=== PATIENT | male | born 1950 ===

== ENCOUNTER 2017-03-21 10:40 | Emergency (ER) | payer MEDICARE ==
[2017-03-21 10:40] VITALS: BMI 29.2
[2017-03-21] MEDS ORDERED: Sodium Chloride 0.9% 1,000 ML IV ONE (11:13)
[2017-03-21] MEDS: Albuterol-Ipratrop 3 mg / 0.5 (3 ml) UD IH SCH ×3 (11:20→11:50)
[2017-03-21] MEDS ORDERED: Albuterol-Ipratrop 3 mg / 0.5 (3 ml) UD ONE ×2 (11:28→11:35)
[2017-03-21] MEDS ORDERED: Sodium Chloride 0.9% 1,000 ML ONE (11:29)
[2017-03-21 11:46] LABS: BASO % 0.5 % (0.0-2.0); EOS # 0.4 K/uL (0.0-0.7); EOS % 4.2 % (0.0-4.0); LYMPH # 3.3 K/uL (1.0-4.3); LYMPH % 34.1 % (20.0-40.0); MEAN CELL VOLUME 88.7 fL (80.0-94.0); MEAN CORPUSCULAR HGB CONC 32.7 g/dL (33.0-37.0); MEAN PLATELET VOLUME 7.5 fL (7.2-11.7); MONO # 0.7 K/uL (0.0-0.8); WHITE BLOOD COUNT 9.6 K/uL (4.8-10.8)
--- NOTE | 2017-03-21 11:53 | C.PDOC ---
History Of Present Illness 66 y/o male, history of COPD, presents to ED with c/o cough productive of white sputum for 1 week. Patient was seen by PMD for similar and was given prednisone and penicillin. Patient reports he felt short of breath while walking today, while he was accompanying his to her doctor's appointment. Denies cough, fever, chills, nausea, vomiting, or other associated symptoms. Time Seen by Provider: 03/21/17 11:08 Chief Complaint (Nursing): Dizziness/Lightheaded History Per: Patient History/Exam Limitations: no limitations Onset/Duration Of Symptoms: Days Current Symptoms Are (Timing): Still Present Current Respiratory Medications: Prednisone Associated Symptoms: Productive Cough. denies: Fever, Chills, Dizziness, Anxiety Reports Recently: Treated By A Physician Recent travel outside of the [place]: No Past Medical History Reviewed: Historical Data, Nursing Documentation, Vital Signs Vital Signs: Last Vital Signs Temp 97.6 F 03/21/17 13:28 Pulse 78 03/21/17 13:28 Resp 17 03/21/17 13:28 BP 148/71 03/21/17 13:28 Pulse Ox 95 03/21/17 13:28 - Medical History PMH: Anxiety, Arthritis, Asthma, Benign Prostatic Hyperplasia, COPD, Depression , HTN, Hypercholesterolemia Denies: Chronic Kidney Disease - [facility] Procedures CATARAC PHACOEMULS/ASPIR (03/10/15) CORONAR ARTERIOGR-2 CATH (08/30/14) INSERT LENS AT CATAR EXT (03/10/15) LEFT HEART CARDIAC CATH (08/30/14) LT HEART ANGIOCARDIOGRAM (08/30/14) Family History: States: Unknown Family Hx - Social History Hx Tobacco Use: No Hx Alcohol Use: No Hx Substance Use: No - Immunization History Hx Tetanus Toxoid Vaccination: Yes Hx Influenza Vaccination: Yes Hx Pneumococcal Vaccination: Yes Review Of Systems Except As Marked, All Systems Reviewed And Found Negative. Constitutional: Negative for: Fever, Chills Cardiovascular: Negative for: Chest Pain, Palpitations Respiratory: Positive for: Cough, Shortness of Breath, Sputum Gastrointestinal: Negative for: Nausea, Vomiting, Abdominal Pain Skin: Negative for: Rash Neurological: Negative for: Headache, Dizziness Physical Exam - Physical Exam Appears: Non-toxic, No Acute Distress Skin: Normal Color, Warm, Dry, No Rash Head: Atraumatic, Normacephalic Eye(s): bilateral: Normal Inspection, PERRL, EOMI Oral Mucosa: Moist Throat: Normal, No Erythema, No Exudate, No Drooling Neck: Supple Chest: Symmetrical Cardiovascular: Rhythm Regular Respiratory: No Accessory Muscle Use, No Rales, Rhonchi (scattered), Wheezing ( expiratory ) Gastrointestinal/Abdominal: Soft, No Tenderness, No Guarding, No Rebound Back: Normal Inspection Extremity: Normal ROM, Capillary Refill (< 2 sec.) Neurological/Psych: Oriented x3, Normal Speech, Normal Cognition ED Course And Treatment - Laboratory Results Result Diagrams: 03/21/17 11:42 03/21/17 11:42 ECG: Interpreted By Me ECG Rhythm: Sinus Rhythm ECG Interpretation: Normal Rate From EC (BPM) O2 Sat by Pulse Oximetry: 96 (RA) Pulse Ox Interpretation: Normal Medical Decision Making Medical Decision Making: Impression: SOB Plan: * EKG * Labs * CXR Progress: EKG is NS at 74 bpm with no ischemic changes Labs unremarkable, negative troponin, patient had no chest pain, c.o tightness and SOB CXR shows COPD, no infiltrates or pleural effusion Upon reevaluation patient has no fever and reports feeling better. Lung sounds have improved. Patient stable for discharge. Instruct to follow up with PCP Disposition Counseled Patient/Family Regarding: Diagnosis, Need For Followup - Disposition Referrals: Pavithra Mccarthy MD [Staff Provider] - Disposition: HOME/ ROUTINE Disposition Time: 13:20 Condition: STABLE Additional Instructions: Follow up with your primary medical doctor or clinic in 2-5 days for further evaluation. Take medications as prescribed. Return to the emergency department at any time if symptoms persist or worsen. Prescriptions: Brompheniramine/Pseudoephed/Dm [Bromfed Dm Cough 118 ml] 5 ml PO Q8 PRN #4 oz PRN Reason: Cough And Congestion Instructions: COPD (Chronic Obstructive Pulmonary Disease) (DC) - POA Present On Arrival: None - Clinical Impression Clinical Impression: COPD exacerbation - PA / [employer] TR[employer]ER / Resident Statement MD/DO has reviewed & agrees with the documentation as recorded. - Scribe Statement The provider has reviewed the documentation as recorded by the Scribe Jorge Suero All medical record entries made by the Scribe were at my direction and personally dictated by me. I have reviewed the chart and agree that the record accurately reflects my personal performance of the history, physical exam, medical decision making, and the department course for this patient. I have also personally directed, reviewed, and agree with the discharge instructions and disposition.
[2017-03-21 12:53] LABS: CHLORIDE 99 mmol/L (98-107)
[2017-03-21 12:54] LABS: POTASSIUM 4.8 mmol/L (3.6-5.2); SODIUM 135 mmol/L (132-148)
[2017-03-21 12:56] LABS: ALB/GLOB RATIO 1.5 (1.0-2.1); ALKALINE PHOSPHATASE 78 U/L (38-126); AST/SGOT 20 U/L (17-59); BILIRUBIN,TOTAL 0.6 mg/dL (0.2-1.3); CARBON DIOXIDE 24 mmol/L (22-30); GFR AFRICAN-AMERICAN > 60; TOTAL PROTEIN 8.2 g/dL (6.3-8.3)
[2017-03-21 12:57] LABS: ALT/SGPT 19 U/L (21-72); BLOOD UREA NITROGEN 16 mg/dL (9-20); CALCIUM 8.8 mg/dl (8.6-10.4); GLUCOSE,RANDOM 83 mg/dL (75-110)
[2017-03-21 13:30] VITALS: BP 148/71; PULSE 78; RESP 17; TEMP 97.6
--- NOTE | 2017-03-21 13:47 | RAD ---
HISTORY: SOB COMPARISON: Comparison is made to the previous study dated 04/15/2016 TECHNIQUE: Chest PA and lateral FINDINGS: LUNGS: No significant interval change in the lungs noted since the previous exam. PLEURA: No significant pleural effusion identified. No pneumothorax apparent. CARDIOVASCULAR: Normal. OSSEOUS STRUCTURES: No significant abnormalities. VISUALIZED UPPER ABDOMEN: Normal. OTHER FINDINGS: None. IMPRESSION: No significant interval change since the previous study.
[2017-03-21 13:57] LABS: RBC URINE < 1 /hpf (0-3); URINE BILIRUBIN NEGATIVE (NEGATIVE); URINE BLOOD NEGATIVE (NEGATIVE); URINE COLOR Yellow (YELLOW); URINE GLUCOSE (UA) NORMAL (Normal); URINE KETONE NEGATIVE (NEGATIVE); URINE LEUKOCYTE ESTERASE 2+ Leu/uL (Negative); URINE PROTEIN NEGATIVE (NEGATIVE); URINE UROBILINOGEN NORMAL mg/dL (0.2-1.0)
[2017-03-21 14:02] LABS: WBC URINE 5 /hpf (0-5)
[2017-03-21 14:23] VITALS: O2SAT 96
--- NOTE | 2017-03-22 23:20 | CARD ---
APPROVED REPORT EKG Measurement Heart [id number] <Conclusion> Normal sinus rhythm Normal ECG
== END 2017-03-21 13:46 | disposition home or self-care (01) ==
LOC: C.ER 10:40
DX: J44.1 Chronic obstructive pulmonary disease with (acute) exacerbation (principal)
CPT/HCPCS: 71020; 80053; 81001; 82948; 83880; 84484; 85025; 93005; 94640; 94770; 96374; 99285; J2930; J7040

== ENCOUNTER 2017-10-02 06:48 | Day surgery (SDC) | payer MEDICARE ==
[2017-10-02 07:10] VITALS: BMI 28.8
[2017-10-02] MEDS ORDERED: Propofol 10 mg/ml Inj (20 ML) ONE (08:05)
--- NOTE | 2017-10-02 08:09 | CP.SDSHP ---
Same Day Surgery H & P - History Proposed Procedure: COLONSCOPY Pre-Op Diagnosis: SCREENING - Previous Medical/Surgical History Cardiac: Hypertension Pulmonary: Asthma Endocrine/Metabolic: Diabetes, Other Neuro: Seizure Disorder Misc: Other Pain: 2.Mild Pain - Allergies Allergies: Allergies No Known Allergies Allergy (Verified 04/15/16 12:40) - Physical Exam General Appearance: N Vital Signs: Vital Signs 10/02/17 10/02/17 07:10 08:00 Temperature 97.5 F L 97.5 F L Pulse Rate 69 69 Respiratory 19 19 Rate Blood Pressure 161/81 H 161/81 H O2 Sat by Pulse 97 97 Oximetry Mental Status: Alert & Oriented x3 Neuro: WNL Heart: Other Lungs: Other GI: WNL - {Optional Preform as Required} Breast: WNL Abdomen: Other Rectal: WNL Integument: WNL : WNL ENT: WNL Eyes: Best Corrected Vision Right - Impression Pt. Evaluated Today:Candidate for Anesthesia & Procedure: Yes - Date & Time Time: 08:09 Short Stay Discharge - Short Stay Discharge Admitting Diagnosis/Reason for Visit: ENCOUNTER FOR SCREENING FOR MALIGNANT NEOPLASM OF Disposition: HOME/ ROUTINE
[2017-10-02] MEDS ORDERED: Phenylephrine 10 mg/ml Inj ONE (08:12)
[2017-10-02] MEDS ORDERED: Midazolam 2 MG/2 ML VIAL ONE (08:26)
[2017-10-02 08:44] VITALS: TEMP 97.8
[2017-10-02] MEDS ORDERED: Belladonna-Phenobarbital PO ONE (08:50)
[2017-10-02 09:24] VITALS: RESP 14; O2SAT 98
[2017-10-02 09:26] VITALS: BP 150/77; PULSE 66
== END 2017-10-02 10:45 | disposition home or self-care (01) ==
LOC: C.ENDO 06:48
PROVIDERS: ATTEND Specialist
DX: K57.90 Diverticulosis of intestine, part unspecified, without perforation or abscess without bleeding (principal); K64.4 Residual hemorrhoidal skin tags; K64.8 Other hemorrhoids
CPT/HCPCS: 45380; 82948; 88305; J2250; J2370; J2704

== ENCOUNTER 2017-10-04 07:20 | Day surgery (SDC) | payer MEDICARE ==
[2017-10-04 08:04] VITALS: BMI 26.6
[2017-10-04] MEDS ORDERED: Propofol 10 mg/ml Inj (20 ML) ONE (09:21)
--- NOTE | 2017-10-04 09:26 | CP.SDSHP ---
Same Day Surgery H & P - History Proposed Procedure: EGD Pre-Op Diagnosis: SEE NOTES - Previous Medical/Surgical History Cardiac: Hypertension, ASHD/CAD Pulmonary: Asthma Endocrine/Metabolic: Diabetes Neuro: Other Misc: Other Pain: 4.Moderate Pain - Allergies Allergies: Allergies No Known Allergies Allergy (Verified 04/15/16 12:40) - Physical Exam General Appearance: N Vital Signs: Vital Signs 10/04/17 07:51 Temperature 98.0 F Pulse Rate 80 Respiratory 97 H Rate Blood Pressure 165/88 H Mental Status: Alert & Oriented x3 Neuro: WNL Heart: Other Lungs: Other GI: WNL - {Optional Preform as Required} Breast: WNL Abdomen: Other Rectal: Other Integument: WNL : Other Ortho: WNL ENT: WNL - Impression Pt. Evaluated Today:Candidate for Anesthesia & Procedure: Yes - Date & Time Time: 09:25 Short Stay Discharge - Short Stay Discharge Admitting Diagnosis/Reason for Visit: DYSPEPSIA Disposition: HOME/ ROUTINE
[2017-10-04] MEDS ORDERED: Belladonna-Phenobarbital PO STA (09:27)
[2017-10-04] MEDS ORDERED: Lactated Ringer's 1,000 ML IV ONE (09:28)
[2017-10-04] MEDS ORDERED: Pantoprazole 40 mg EC Tab PO STA (09:42)
[2017-10-04 11:45] VITALS: TEMP 98.1
[2017-10-04 11:54] VITALS: BP 140/66; PULSE 63; RESP 18; O2SAT 98
== END 2017-10-04 11:05 | disposition home or self-care (01) ==
LOC: C.ENDO 07:20
PROVIDERS: ATTEND Specialist
DX: K21.0 Gastro-esophageal reflux disease with esophagitis (principal); K29.60 Other gastritis without bleeding; K44.9 Diaphragmatic hernia without obstruction or gangrene
CPT/HCPCS: 43239; 82948; 88305; 88342; J2704; J7120

== ENCOUNTER 2017-10-19 09:32 | Emergency (ER) | payer MEDICARE ==
[2017-10-19 09:32] VITALS: BMI 26.6
[2017-10-19 09:42] VITALS: TEMP 97.3
[2017-10-19] MEDS ORDERED: Albuterol-Ipratrop 3 mg / 0.5 (3 ml) UD IH STA (09:47)
[2017-10-19] MEDS ORDERED: Albuterol-Ipratrop 3 mg / 0.5 (3 ml) UD ONE (09:57)
[2017-10-19 09:58] LABS: BASO % 0.4 % (0.0-2.0); EOS # 0.6 K/uL (0.0-0.7); EOS % 6.2 % (0.0-4.0); HEMOGLOBIN 13.7 g/dL (12.0-18.0); LYMPH # 3.9 K/uL (1.0-4.3); LYMPH % 37.9 % (20.0-40.0); MEAN CELL VOLUME 89.2 fL (80.0-94.0); MEAN CORPUSCULAR HEMOGLOBIN 30.3 pg (27.0-31.0); MEAN CORPUSCULAR HGB CONC 33.9 g/dL (33.0-37.0); MEAN PLATELET VOLUME 8.2 fL (7.2-11.7); MONO # 0.8 K/uL (0.0-0.8); MONO % 7.7 % (0.0-10.0); NEUT % 47.8 % (50.0-75.0); RBC 4.51 Mil/uL (4.40-5.90); RED CELL DISTRIBUTION WIDTH 13.1 % (11.5-14.5); WHITE BLOOD COUNT 10.4 K/uL (4.8-10.8)
[2017-10-19 10:04] LABS: INR 0.9; PROTHROMBIN TIME 10.5 SECONDS (9.7-12.2)
[2017-10-19 10:10] LABS: ALBUMIN 4.4 g/dL (3.5-5.0); ALT/SGPT 18 U/L (21-72); AST/SGOT 17 U/L (17-59); BLOOD UREA NITROGEN 20 mg/dL (9-20); CALCIUM 8.8 mg/dl (8.6-10.4); GFR AFRICAN-AMERICAN > 60; GFR NON-AFRICAN AMERICAN > 60
[2017-10-19 10:12] LABS: ALB/GLOB RATIO 1.2 (1.0-2.1)
--- NOTE | 2017-10-19 10:12 | C.PDOC ---
History Of Present Illness 67 year old male, with past medical history of COPD, presents to ED for evaluation of increased shortness of breath, and chest pain for the past 3 days. Patient states, "my entire chest and back hurts from all the coughing". Patient reports having non-productive cough, and feeling short of breath with exertion. Patient also admits to decreased appetite, only having one meal yesterday. Notes that he felt weak and felt as if he will pass out yesterday after climbing up 5 steps of stairs. Notes using nebulizer machine at home with no significant relief. Denies fever, chills, leg/ankle swelling or pain, headache, dizziness, or any other associated symptoms at this time. Time Seen by Provider: 10/19/17 09:43 Chief Complaint (Nursing): Chest Pain History Per: Patient History/Exam Limitations: no limitations Onset/Duration Of Symptoms: Days Current Symptoms Are (Timing): Still Present Associated Symptoms: Dyspnea. denies: Nausea, Diaphoresis, Syncope Modifying Factors: None Exacerbating Factors: Exertion Alleviating Factors: None Recent travel outside of the [place]: No Additional History Per: Patient Past Medical History Reviewed: Historical Data, Nursing Documentation, Vital Signs Vital Signs: Last Vital Signs Temp 97.3 F L 10/19/17 09:34 Pulse 87 10/19/17 10:16 Resp 20 10/19/17 10:16 BP 122/64 10/19/17 10:16 Pulse Ox 95 10/19/17 10:26 - Medical History PMH: Anxiety, Arthritis, Asthma, Benign Prostatic Hyperplasia, COPD, Depression , HTN (DUE TO PREDNISONE), Hypercholesterolemia Surgical History: No Surg Hx - [facility] Procedures CATARAC PHACOEMULS/ASPIR (03/10/15) CORONAR ARTERIOGR-2 CATH (08/30/14) INSERT LENS AT CATAR EXT (03/10/15) LEFT HEART CARDIAC CATH (08/30/14) LT HEART ANGIOCARDIOGRAM (08/30/14) Family History: States: Unknown Family Hx - Social History Hx Tobacco Use: No Hx Alcohol Use: No Hx Substance Use: No - Immunization History Hx Tetanus Toxoid Vaccination: Yes Hx Influenza Vaccination: Yes Hx Pneumococcal Vaccination: Yes Review Of Systems Except As Marked, All Systems Reviewed And Found Negative. Constitutional: Positive for: Weakness. Negative for: Fever, Chills Cardiovascular: Positive for: Chest Pain. Negative for: Palpitations, Edema, Light Headedness Respiratory: Positive for: Cough, Shortness of Breath, SOB with Excertion. Negative for: Sputum Gastrointestinal: Negative for: Nausea, Vomiting, Abdominal Pain Musculoskeletal: Positive for: Back Pain. Negative for: Neck Pain Neurological: Negative for: Headache, Dizziness Physical Exam - Physical Exam Appears: Non-toxic, No Acute Distress (no respiratory distress) Skin: Normal Color, Warm, Dry Head: Atraumatic, Normacephalic Eye(s): bilateral: Normal Inspection, EOMI Ear(s): Bilateral: Normal (no erythema) Nose: Normal Oral Mucosa: Moist Neck: Normal ROM, Supple Chest: Symmetrical, No Deformity, No Tenderness Cardiovascular: Rhythm Regular, No Murmur Respiratory: Normal Breath Sounds (clear), No Accessory Muscle Use, No Rales, No Rhonchi, No Wheezing Gastrointestinal/Abdominal: Soft, No Tenderness Back: No Vertebral Tenderness, No Paraspinal Tenderness Extremity: Normal ROM, No Pedal Edema, No Deformity Pulses: Left Radial: Normal Neurological/Psych: Oriented x3, Normal Speech Gait: Steady ED Course And Treatment - Laboratory Results Result Diagrams: 10/19/17 09:53 10/19/17 09:53 Lab Interpretation: No Acute Changes ECG: Interpreted By Me, Viewed By Me ECG Rhythm: Sinus Rhythm ECG Interpretation: No Acute Changes Rate From EC (bpm) O2 Sat by Pulse Oximetry: 95 (RA) Pulse Ox Interpretation: Normal - Radiology CXR: Interpreted by Me, Viewed By Me CXR Interpretation: Yes: No Acute Disease. No: Infiltrates Medical Decision Making Medical Decision Making: Impression: SOB, weakness Plan: * Labs * CXR * Duoneb * Solu-medrol Progress: Labs show mild dehydration.Will order IV NS. Otherwise no leukocytosis, neg trop or other abnormality CXR shows no infiltrates, effusion or pneumothorax, EKG is NS without ST elevation or ischemic changes 10:55 On re-evaluation patient reports feeling better, his lungs are clear and his vital signs are stable. Discussed results with patient and he feels comfortable going home and will be discharged Disposition Counseled Patient/Family Regarding: Diagnosis, Need For Followup, Rx Given - Disposition Referrals: Pavithra Mccarthy MD [Staff Provider] - Disposition: HOME/ ROUTINE Disposition Time: 11:00 Condition: IMPROVED Additional Instructions: Your prescription for Prednisone was sent to [facility], please take it daily as directed Use your nebulizer and inhaler as needed It is important that you follow up with your physician Dr Mccarthy in timely manner Return to the emergency department at any time if symptoms persist or worsen. 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 - Scribe Statement The provider has reviewed the documentation as recorded by the Geneibe Ofelia Crum All medical record entries made by the Geneibjoselyn were at my direction and personally dictated by me. I have reviewed the chart and agree that the record accurately reflects my personal performance of the history, physical exam, medical decision making, and the department course for this patient. I have also personally directed, reviewed, and agree with the discharge instructions and disposition.
[2017-10-19] MEDS ORDERED: Sodium Chloride 0.9% 1,000 ML IV ONE (10:13)
[2017-10-19 10:22] LABS: B-TYPE NATRIURETIC PEPTIDE 30.5 pg/mL (0-900)
[2017-10-19 10:26] LABS: SQUAMOUS EPITHIAL 1 /hpf (0-5); URINE BACTERIA RARE (<OCC); URINE BILIRUBIN NEGATIVE (NEGATIVE); URINE BLOOD NEGATIVE (NEGATIVE); URINE CLARITY Clear (Clear); URINE COLOR Yellow (YELLOW); URINE GLUCOSE (UA) NORMAL (Normal); URINE LEUKOCYTE ESTERASE 2+ Leu/uL (Negative); URINE NITRATE NEGATIVE (NEGATIVE); URINE PROTEIN NEGATIVE (NEGATIVE)
[2017-10-19 11:19] VITALS: BP 125/60; PULSE 70; RESP 16
[2017-10-19 12:08] VITALS: O2SAT 95
--- NOTE | 2017-10-19 12:27 | RAD ---
HISTORY: COMPARISON: 03/21/2017. TECHNIQUE: Chest PA and lateral FINDINGS: LINES AND TUBES: None. LUNG AND PLEURA: The lungs are well inflated and clear. HEART AND MEDIASTINUM: The heart is not enlarged. The hilar and mediastinal contours are within normal limits. SKELETAL STRUCTURES: The bony structures are within normal limits for the patient's age. VISUALIZED UPPER ABDOMEN: Normal. OTHER FINDINGS: None. IMPRESSION: No active pulmonary disease.
--- NOTE | 2017-10-22 10:11 | CARD ---
APPROVED REPORT EKG Measurement Heart [id number] <Conclusion> Normal sinus rhythm Normal ECG
== END 2017-10-19 11:27 | disposition home or self-care (01) ==
LOC: C.ER 09:32
DX: J44.1 Chronic obstructive pulmonary disease with (acute) exacerbation (principal); I10 Essential (primary) hypertension; E78.00 Pure hypercholesterolemia, unspecified; N40.0 Benign prostatic hyperplasia without lower urinary tract symptoms
CPT/HCPCS: 71046; 80053; 81001; 83880; 84484; 85025; 85610; 85730; 93005; 94640; 96361; 96374; 99285; J2930; J7040

== ENCOUNTER 2018-01-17 08:55 | Day surgery (SDC) | payer MEDICARE ==
[2018-01-09 09:11] VITALS: BMI 27.6
[2018-01-17] MEDS: Tetracaine 0.5% Ophth (OR ONLY) ONE ×2 (08:23→09:48)
[2018-01-17] MEDS: Hyaluronidase Human, Recombi 150 U/ML VIAL ONE ×2 (08:23→09:58)
[2018-01-17] MEDS: Carbachol 0.01% IO ONE ×2 (08:24→10:00)
[2018-01-17] MEDS: Chondroitin/Hyaluronate Opth Syringe KIT (0.55 ml-0.5 ml) IO ONE ×2 (08:24→09:58)
[~2018-01-17 08:55] MED LIST: Lactated Ringer's 500 ML IV ONE; Lidocaine Hydrochloride 5 ML INJ ONE; Phenylephrine 2.5% Opht Soln OS SCH; Tropicamide 1% Opht SOLUTION OS SCH
[2018-01-17] MEDS ORDERED: Lactated Ringer's 500 ML IV ONE ×3 (09:31→10:11)
[2018-01-17] MEDS ORDERED: Propofol 10 mg/ml Inj (20 ML) ONE (09:48)
[2018-01-17] MEDS ORDERED: Lactated Ringer's 1,000 ML IV ONE (10:11)
[2018-01-17 10:59] VITALS: O2SAT 95
[2018-01-17 11:44] VITALS: BP 132/59; PULSE 61; RESP 15; TEMP 97.7
--- NOTE | 2018-01-18 18:07 | OP ---
PROCEDURE DATE: 01/17/2018 PREOPERATIVE DIAGNOSIS: Mature cataract, left eye. POSTOPERATIVE DIAGNOSIS: Mature cataract, left eye. OPERATIVE PROCEDURE: Cataract extraction with lens implant, left eye. SURGEON: Paul Geiger MD COMPLICATIONS: None. ESTIMATED BLOOD LOSS: Zero. PROCEDURE: The patient was brought to the operating room and properly identified. Anesthesia staff administered intravenous sedation and retrobulbar block was given to the surgical eye. The patient was then prepped and draped in the usual sterile fashion. Attention was turned to the surgical eye. A lid speculum was placed into interpalpebral fissure. Sitting temporally, two paracentesis incisions were made. The anterior chamber was filled with viscoelastic and a triplanar clear corneal incision was made. Using a cystitome, anterior capsular leaflet was created. Utrata forceps were used to create a continuous curvilinear capsulorrhexis. Balanced salt solution on a cannula was used to hydrodissect and hydrodelineate the lens. The lens was then phacoemulsified with no complications. Automated irrigation and aspiration was used to remove the cortex. Viscoelastic was used to deepen the anterior chamber. The lens was placed in the capsular bag. Automated irrigation and aspiration was used to remove the viscoelastic. The anterior chamber was filled with Miochol. The wounds were hydrated with balanced salt solution. There was noted to be no leak at the end of the case and the lens was well positioned. The lid speculum was removed. The eye was given antibiotics and steroids and covered with a patch and shield. The patient was returned to the recovery room in stable condition. Paul Geiger MD
== END 2018-01-17 11:54 | disposition home or self-care (01) ==
LOC: C.SDS 08:55
PROVIDERS: ATTEND Ophthalmology
DX: H25.012 Cortical age-related cataract, left eye (principal)
CPT/HCPCS: 66984; 82948; J2704; J3470; J7120; V2632

== ENCOUNTER 2019-03-05 09:44 | Outpatient (CLI) | payer MEDICARE | END 2019-03-05 09:45 | disposition home or self-care (01) | LOC: C.LAB 09:44 ==

== ENCOUNTER 2019-03-05 11:01 | Outpatient (CLI) | payer MEDICARE | END 2019-03-05 11:02 | disposition home or self-care (01) | LOC: C.RADIC 11:01 | DX: N20.0 Calculus of kidney (principal) ==